=== PATIENT | male | born 1990 ===

== ENCOUNTER 2020-01-21 19:36 | Inpatient (IN) | payer SELFPAY ==
--- NOTE | 2020-01-21 20:40 | Emergency Department Report ---
Blank Doc - Documentation Documentation: 29-year-old male that presents with RLQ pain and n/v. This initial assessment/diagnostic orders/clinical plan/treatment(s) is/are subject to change based on patient's health status, clinical progression and re- assessment by fellow clinical providers in the ED. Further treatment and workup at subsequent clinical providers discretion. Patient/guardians urged not to elope from the ED as their condition may be serious if not clinically assessed and managed. Initial orders include: 1- Patient sent to [facility] for further evaluation and treatment 2- labs 3- UA
[2020-01-21 21:00] LABS: Basophils % (Auto) 0.3 % (0.0-1.8); Eosinophils # (Auto) 0.1 K/mm3 (0.0-0.4); Eosinophils % (Auto) 0.6 % (0.0-4.3); Hematocrit 46.9 % (35.5-45.6); Hemoglobin 16.3 gm/dl (11.8-15.2); Lymphocytes # (Auto) 1.4 K/mm3 (1.2-5.4); Lymphocytes % (Auto) 14.3 % (13.4-35.0); Mean Corpuscular HGB Conc 35 % (32-34); Mean Corpuscular Volume 90 fl (84-94); Monocytes # (Auto) 0.6 K/mm3 (0.0-0.8); Monocytes % (Auto) 5.9 % (0.0-7.3); Platelet Count 260 K/mm3 (140-440); Red Blood Count 5.22 M/mm3 (3.65-5.03); Red Cell Distribution Width 13.5 % (13.2-15.2)
[2020-01-21 21:23] LABS: Alanine Aminotransferase 27 units/L (7-56); Albumin 4.8 g/dL (3.9-5); BUN/Creatinine Ratio 14; Blood Urea Nitrogen 13 mg/dL (9-20); Calcium 9.8 mg/dL (8.4-10.2); Hemolysis Index 13
[2020-01-21 22:15] LABS: Bilirubin,Urine NEG (Negative); Blood,Urine NEG (Negative); Color,Urine Yellow (Yellow); Mucus,Urine FEW /HPF; Urobilinogen,Urine < 2.0 mg/dL (<2.0)
[2020-01-22] MEDS ORDERED: SODIUM CHLORIDE 0.9% 1000 ML 1,000 ML IV ONE (03:25)
[2020-01-22] MEDS ORDERED: ONDANSETRON 4 MG/2 ML INJ IV ONE (03:25)
--- NOTE | 2020-01-22 03:47 | Emergency Department Report ---
ED Abdominal Pain HPI - General Chief Complaint: Abdominal Pain Stated Complaint: ABD PAIN Time Seen by Provider: 01/21/20 20:40 Source: patient Mode of arrival: Ambulatory Limitations: No Limitations - History of Present Illness Initial Comments: this is a 29-year-old male that presents with RLQ pain and n/v x 3 days . pt denies fever or chills, pt does endorse 8/10 pain exacerbated by movement breathing and palpation. pain is relieved by nothing tried, pain is exacerbated by po intake, there are no other modifying factors. MD Complaint: abdominal pain Onset/Timin -: days(s) Radiation: RLQ Migration to: RLQ Consistency: constant Improves With: nothing Worsens With: eating Associated Symptoms: nausea, vomiting - Related Data Allergies Allergy/AdvReac Type Severity Reaction Status Date / Time No Known Allergies Allergy Unverified 01/21/20 20:43 ED Review of Systems ROS: Stated complaint: ABD PAIN Other details as noted in HPI Constitutional: denies: chills, fever Eyes: denies: eye pain, eye discharge, vision change ENT: denies: ear pain, throat pain Respiratory: denies: cough, shortness of breath, wheezing Cardiovascular: denies: chest pain, palpitations Endocrine: no symptoms reported Gastrointestinal: abdominal pain, nausea, vomiting. denies: diarrhea, constipation, melena Genitourinary: denies: urgency, dysuria, frequency, hematuria, discharge Musculoskeletal: as per HPI Skin: as per HPI Neurological: denies: headache, weakness, paresthesias Psychiatric: anxiety Hematological/Lymphatic: denies: easy bleeding, easy bruising ED Past Medical Hx - Past Medical History Previous Medical History?: No - Surgical History Past Surgical History?: No - Social History Smoking Status: Never Smoker Substance Use Type: None ED Physical Exam - General Limitations: No Limitations General appearance: alert, in no apparent distress - Head Head exam: Present: atraumatic, normocephalic - Eye Eye exam: Present: normal appearance, PERRL, EOMI Pupils: Present: normal accommodation - ENT ENT exam: Present: mucous membranes moist - Neck Neck exam: Present: normal inspection, full ROM. Absent: tenderness - Respiratory Respiratory exam: Present: normal lung sounds bilaterally. Absent: respiratory distress, wheezes, stridor - Cardiovascular Cardiovascular Exam: Present: regular rate, normal rhythm, normal heart sounds. Absent: systolic murmur, diastolic murmur, rubs, gallop - GI/Abdominal GI/Abdominal exam: Present: tenderness, guarding, normal bowel sounds. Absent: rebound, rigid, mass, bruit, pulsatile mass, hernia - Expanded GI/Abdominal Exam Expanded GI/Abdominal exam: Present: psoas sign, obturator sign, heel tap sign. Absent: Reyes's sign, Rovsing's sign, tenderness at Mcburney's Point, ascites - Rectal Rectal exam: Present: deferred - Extremities Exam Extremities exam: Present: normal inspection, full ROM, normal capillary refill. Absent: tenderness - Back Exam Back exam: Present: normal inspection, full ROM. Absent: tenderness, CVA te nderness (R), CVA tenderness (L), vertebral tenderness - Neurological Exam Neurological exam: Present: alert, oriented X3, CN II-XII intact, normal gait - Psychiatric Psychiatric exam: Present: normal affect, normal mood - Skin Skin exam: Present: warm, dry, intact, normal color. Absent: rash ED Course Vital Signs 01/21/20 19:55 Temperature 98.1 F Pulse Rate 67 Respiratory 20 Rate Blood Pressure 141/86 O2 Sat by Pulse 100 Oximetry ED Medical Decision Making - Lab Data Result diagrams: 01/21/20 20:51 01/21/20 20:51 Labs 01/21/20 01/21/20 01/21/20 20:51 20:51 Unknown WBC 9.7 RBC 5.22 H Hgb 16.3 H Hct 46.9 H MCV 90 MCH 31 MCHC 35 H RDW 13.5 Plt Count 260 Lymph % (Auto) 14.3 Lynn % (Auto) 5.9 Eos % (Auto) 0.6 Baso % (Auto) 0.3 Lymph # 1.4 Lynn # 0.6 Eos # 0.1 Baso # 0.0 Seg Neutrophils % 78.9 H Seg Neutrophils # 7.7 Sodium 139 Potassium 4.2 Chloride 97.9 L Carbon Dioxide 27 Anion Gap 18 BUN 13 Creatinine 0.9 Estimated GFR > 60 BUN/Creatinine Ratio 14 Glucose 108 H Calcium 9.8 Total Bilirubin 0.70 AST 15 ALT 27 Alkaline Phosphatase 100 Total Protein 8.8 H Albumin 4.8 Albumin/Globulin Ratio 1.2 Lipase 20 Urine Color Yellow Urine Turbidity Clear Urine pH 6.0 Ur Specific Alton 1.021 Urine Protein 30 mg/dl Urine Glucose (UA) Neg Urine Ketones Neg Urine Blood Neg Urine Nitrite Neg Urine Bilirubin Neg Urine Urobilinogen < 2.0 Ur Leukocyte Esterase Neg Urine WBC (Auto) 1.0 Urine RBC (Auto) 3.0 U Epithel Cells (Auto) < 1.0 Urine Mucus Few - Radiology Data Radiology results: report reviewed, image reviewed Findings Reporting MD: Nafisa Finley Dictation Time: January 22, 2020 03:28 Tr anscriptionist: Not available Senior Auditor Date: CT ABDOMEN AND PELVIS WITH IV CONTRAST INDICATION: Right lower quadrant abdominal pain TECHNIQUE: Following the administration of intravenous contrast, multiple axial CT images of the abdomen and pelvis were acquired. Sagittal and coronal r eformats were obtained. All CT performed at this facility utilize dose reduction techniques including automated exposure control, iterative reconstruction and weight based dosing when appropriate to reduce patient radiation dose to as low as reasonably achievable. COMPARISON: None FINDINGS: Limited imaging of the bilateral lung bases demonstrates no evidence of acute abnormality. Abdomen: The liver, gallbladder, spleen, pancreas, bilateral adrenal glands and bilateral kidneys show no evidence of acute abnormality. The abdominal aorta is normal in caliber. The appendix is thick-walled, fluid-filled and dilated to a maximum caliber of 1.2 cm with associated mild to moderate inflammatory stranding. No extraluminal air is identified. There are a few prominent right lower quadrant lymph nodes noted. Pelvis: No free fluid is seen within the pelvis. The urinary bladder appears normal. Bones and Soft Tissues: Evaluation of bony structures demonstrates no evidence of acute bony abnormality. Evaluation of soft tissue structures demonstrates no evidence of acute soft tissue abnormality. IMPRESSION: 1. Dilated fluid-filled appendix with mild to moderate associated inflammatory changes most compatible with acute appendicitis. Signer Name: Nafisa Finley MD Signed: 01/22/2020 3:28 AM Workstation Name: [id number] - Medical Decision Making ct abd pelvis consistent with acute appendicitis, consulted general surgery Dr. Pearson recommendation: Admit to hospitalist, Dx Acute Appendicitis, Plan Admit to [facility] Dx Acute appendicitis, Right Quad Abdominal Pain versus acute Appendicitis. Discussed tx plan with patient, NS IVFs, Zosyn 4.5 gm, plan surgery this am, NPO , pt verbalized agreement and understanding of discharge plan. Last po intake 1 day ago with n/v. Critical care attestation.: If time is entered above; I have spent that time in minutes in the direct care of this critically ill patient, excluding procedure time. ED Disposition Clinical Impression: Appendicitis Qualifiers: Appendicitis type: acute appendicitis Acute appendicitis type: unspecified acute appendicitis type Qualified Code(s): K35.80 - Unspecified acute appendicitis Disposition: OP ADMIT IP TO THIS HOSP Is pt being admited?: Yes Does the pt Need Aspirin: No Condition: Stable Instructions: Abdominal Pain (ED) Time of Disposition: 05:08
--- NOTE | 2020-01-22 04:33 | Cat Scan Report ---
CT ABDOMEN AND PELVIS WITH IV CONTRAST INDICATION: Right lower quadrant abdominal pain TECHNIQUE: Following the administration of intravenous contrast, multiple axial CT images of the abdo men and pelvis were acquired. Sagittal and coronal reformats were obtained. All CT performed at this facility utilize dose reduction techniques including automated exposure control, iterative reconstru ction and weight based dosing when appropriate to reduce patient radiation dose to as low as reasonab ly achievable. COMPARISON: None FINDINGS: Limited imaging of the bilateral lung bases demonstrates no evidence of acute abnormality. Abdomen: The liver, gallbladder, spleen, pancreas, bilateral adrenal glands and bilateral kidneys douglas w no evidence of acute abnormality. The abdominal aorta is normal in caliber. The appendix is thick-walled, fluid-filled and dilated to a maximum caliber of 1.2 cm with associated mild to moderate inflammatory stranding. No extraluminal air is identified. There are a few prominen t right lower quadrant lymph nodes noted. Pelvis: No free fluid is seen within the pelvis. The urinary bladder appears normal. Bones and Soft Tissues: Evaluation of bony structures demonstrates no evidence of acute bony abnormal ity. Evaluation of soft tissue structures demonstrates no evidence of acute soft tissue abnormality. IMPRESSION: 1. Dilated fluid-filled appendix with mild to moderate associated inflammatory changes most compatibl e with acute appendicitis. Signer Name: Nafisa Finley MD Signed: 01/22/2020 4:28 AM Workstation Name: [id number]
[2020-01-22] MEDS ORDERED: MORPHINE 4 MG/1 ML INJ IV ONE (04:42)
[2020-01-22] MEDS ORDERED: PIPERACIL/TAZOBACTA 4.5/NS 100 4.5 GM/100 ML VIAL IV ONE (04:42)
[2020-01-22] MEDS ORDERED: SODIUM CHLORIDE 0.9% 1000 ML 1,000 ML IV SCH (05:15)
--- NOTE | 2020-01-22 08:08 | History and Physical Report ---
History of Present Illness Date of examination: 01/22/20 Date of admission: 01/22/20 06:00 Chief complaint: Right lower quadrant abdominal pain associated with nausea vomiting 3 days History of present illness: Very pleasant 29-year-old male patient with no significant past medical history not on any medications presented to the emergency room with history of right lower quadrant abdominal pain associated with nausea vomiting for the last 3 days, patient also reports that he felt feverish however never checked his temperature, reports 2-3 vomitings no hematemesis no diarrhea or rectal bleeding, Denies urinary symptoms Initial evaluation in the ED , CT abdomen and pelvis; revealed fluid-filled appendix with mild to moderate inflammatory changes consistent with acute appendicitis. ED has already consulted surgeon Patient is n.p.o. status Past History Past Medical History: No medical history Past Surgical History: No surgical history Social history: alcohol abuse (Social). denies: smoking, prescription drug abuse Family history: no significant family history Medications and Allergies Allergies Allergy/AdvReac Type Severity Reaction Status Date / Time No Known Allergies Allergy Verified 01/22/20 05:07 Active Meds: Active Medications Sodium Chloride (Nacl 0.9% 1000 Ml) 1,000 mls @ 125 mls/hr IV DIRECT ABIOLA Review of Systems Constitutional: fever (Note low-grade fever at home), no weight loss, no weight gain, no chills Cardiovascular: no chest pain, no orthopnea Respiratory: no cough, no hemoptysis, no shortness of breath Gastrointestinal: abdominal pain, nausea, vomiting, no diarrhea, no BRBPR, no melena Genitourinary Male: no dysuria, no hematuria Musculoskeletal: no myalgias, no arthritis Integumentary: no rash, no lesions Neurological: no seizures, no syncope Psychiatric: no anxiety, no depression Endocrine: no cold intolerance, no heat intolerance, no polydipsia, no polyuria Hematologic/Lymphatic: no easy bruising, no easy bleeding Allergic/Immunologic: no urticaria, no allergic rhinitis Exam - Constitutional Vitals: Temp Pulse Resp BP Pulse Ox 99.5 F 56 L 16 119/71 100 01/22/20 06:31 01/22/20 06:31 01/22/20 06:31 01/22/20 06:31 01/22/20 06:31 General appearance: Present: no acute distress, well-nourished - EENT Eyes: Present: PERRL, EOM intact - Neck Neck: Present: supple, normal ROM - Respiratory Respiratory effort: normal Respiratory: bilateral: diminished, negative: rales, rhonchi, wheezing - Cardiovascular Rhythm: regular Heart Sounds: Present: S1 & S2 - Extremities Extremities: no ischemia, No edema - Abdominal General gastrointestinal: Present: soft, tender (Right lower quadrant, no guarding no rigidity), non-distended, normal bowel sounds - Integumentary Integumentary: Present: clear, warm - Musculoskeletal Musculoskeletal: strength equal bilaterally - Psychiatric Psychiatric: appropriate mood/affect, cooperative - Neurologic Neurologic: moves all extremities Results - Labs CBC & Chem 7: 01/21/20 20:51 01/21/20 20:51 Labs: Abnormal lab results 01/21/20 01/21/20 Range/Units 20:51 20:51 RBC 5.22 H (3.65-5.03) M/mm3 Hgb 16.3 H (11.8-15.2) gm/dl Hct 46.9 H (35.5-45.6) % MCHC 35 H (32-34) % Seg Neutrophils % 78.9 H (40.0-70.0) % Chloride 97.9 L (98-107) mmol/L Glucose 108 H (75-100) mg/dL Total Protein 8.8 H (6.3-8.2) g/dL Assessment and Plan --Acute appendicitis; Right lower quadrant pain with nausea vomiting N.p.o. status, IV Zosyn Surgery consulted --Intractable nausea vomiting; Secondary to acute appendicitis Antiemetics, IV Protonix Supportive care --DVT prophylaxis; SCDs No pharmacologic anticoagulation pending surgical procedure Closely monitor the patient and adjust management as needed Plan of care reviewed with the patient and his nurse
[2020-01-22] MEDS ORDERED: ONDANSETRON 4 MG/2 ML INJ IV PRN ×2 (08:17→12:53)
--- NOTE | 2020-01-22 09:26 | Consultation ---
History of Present Illness Consult date: 01/22/20 Reason for consult: abdominal pain Chief complaint: abdominal pain - History of present illness History of present illness: 29 yo M with no PMHx presents to ER with 2 days of worsening RLQ, sharp, nonradi ating abdominal pain. Pain started suddenly on Saturday. Patient saw his PCP who advised him to go to ER for symptoms worrisome for appendicitis. Patient states he has had n/v. No f/c. No sick contacts. He has never had pain like this before. No inciting factors. w/u in ER showed appendecitis. Surgery consulted for evaluation. Past History Past Medical History: No medical history Past Surgical History: No surgical history Social history: alcohol abuse (Social). denies: smoking, prescription drug abuse Family history: no significant family history Medications and Allergies Allergies Allergy/AdvReac Type Severity Reaction Status Date / Time No Known Allergies Allergy Verified 01/22/20 05:07 Active Meds: Active Medications Sodium Chloride (Nacl 0.9% 1000 Ml) 1,000 mls @ 125 mls/hr IV DIRECT ABIOLA Piperacillin Sod/Tazobactam Sod (Zosyn/Ns 4.5gm/100ml) 4.5 gm in 100 mls @ 200 mls/hr IV Q8HR ABIOLA; Protocol Ondansetron HCl (Zofran) 4 mg IV Q4H PRN PRN Reason: Nausea And Vomiting Pantoprazole Sodium (Protonix) 40 mg IV QDAY ABIOLA Review of Systems All systems: negative (10 PT ROS performed and negative except for that listed in HPI) Exam Vital Signs Temp Pulse Resp BP Pulse Ox 98.1 F 67 20 141/86 100 01/21/20 19:55 01/21/20 19:55 01/21/20 19:55 01/21/20 19:55 01/21/20 19:55 Narrative exam: Gen: AAOx3. NAD ENT: No scleral icterus or conjunctival pallor CV: S1, S2+ Resp: even and unlabored Abd: soft, ND, +RLQ and suprapubic TTP. no r/r/g Ext: no c/c/e Results - Labs 01/21/20 20:51 01/21/20 20:51 Abnormal lab results 01/21/20 01/21/20 Range/Units 20:51 20:51 RBC 5.22 H (3.65-5.03) M/mm3 Hgb 16.3 H (11.8-15.2) gm/dl Hct 46.9 H (35.5-45.6) % MCHC 35 H (32-34) % Seg Neutrophils % 78.9 H (40.0-70.0) % Chloride 97.9 L (98-107) mmol/L Glucose 108 H (75-100) mg/dL Total Protein 8.8 H (6.3-8.2) g/dL Diabetes panel 01/21/20 Range/Units 20:51 Sodium 139 (137-145) mmol/L Potassium 4.2 (3.6-5.0) mmol/L Chloride 97.9 L (98-107) mmol/L Carbon Dioxide 27 (22-30) mmol/L BUN 13 (9-20) mg/dL Creatinine 0.9 (0.8-1.3) mg/dL Glucose 108 H (75-100) mg/dL Calcium 9.8 (8.4-10.2) mg/dL AST 15 (5-40) units/L ALT 27 (7-56) units/L Alkaline Phosphatase 100 (35-129) units/L Total Protein 8.8 H (6.3-8.2) g/dL Albumin 4.8 (3.9-5) g/dL Calcium panel 01/21/20 Range/Units 20:51 Calcium 9.8 (8.4-10.2) mg/dL Albumin 4.8 (3.9-5) g/dL Pituitary panel 01/21/20 Range/Units 20:51 Sodium 139 (137-145) mmol/L Potassium 4.2 (3.6-5.0) mmol/L Chloride 97.9 L (98-107) mmol/L Carbon Dioxide 27 (22-30) mmol/L BUN 13 (9-20) mg/dL Creatinine 0.9 (0.8-1.3) mg/dL Glucose 108 H (75-100) mg/dL Calcium 9.8 (8.4-10.2) mg/dL Adrenal panel 01/21/20 Range/Units 20:51 Sodium 139 (137-145) mmol/L Potassium 4.2 (3.6-5.0) mmol/L Chloride 97.9 L (98-107) mmol/L Carbon Dioxide 27 (22-30) mmol/L BUN 13 (9-20) mg/dL Creatinine 0.9 (0.8-1.3) mg/dL Glucose 108 H (75-100) mg/dL Calcium 9.8 (8.4-10.2) mg/dL Total Bilirubin 0.70 (0.1-1.2) mg/dL AST 15 (5-40) units/L ALT 27 (7-56) units/L Alkaline Phosphatase 100 (35-129) units/L Total Protein 8.8 H (6.3-8.2) g/dL Albumin 4.8 (3.9-5) g/dL - Imaging CT scan - abdomen: report reviewed, image reviewed CT scan - pelvis: report reviewed, image reviewed Assessment and Plan 29 yo M with acute appendicitis Plan: 1. NPo 2. IVF 3. IV abx - zosyn 4. prn pain and nausea control 5. recommend OR for appendectomy. Indication, risks, benefits, alternatives to surgery discussed with patient and questions answered. Consent obtained. Pt added to OR schedule for today. He has updated his mother and girlfriend. Thank you, please call with questions.
[2020-01-22] MEDS ORDERED: PANTOPRAZOLE 40 MG INJ IV SCH (10:00)
[2020-01-22] MEDS ORDERED: PANTOPRAZOLE 40 MG INJ IV ONE (10:25)
[2020-01-22] MEDS ORDERED: HYDROmorphone 1 MG/1 ML INJ IV PRN (12:53)
--- NOTE | 2020-01-22 12:53 | Anesthesia Day of Surgery ---
Anesthesia Day of Surgery - Day of Surgery Patient Examined: Yes Patient H&P Reviewed: Yes Patient is NPO: Yes
--- NOTE | 2020-01-22 12:53 | Anesthesia Consultation ---
Anesthesia Consult and Med Hx Date of service: 01/22/20 - Airway Anesthetic Teeth Evaluation: Good ROM Head & Neck: Adequate Mental/Hyoid Distance: Adequate Mallampati Class: Class II Intubation Access Assessment: Probably Good - Pulmonary Exam CTA: Yes - Cardiac Exam Cardiac Exam: RRR - Pre-Operative Health Status ASA Pre-Surgery Classification: ASA1 Proposed Anesthetic Plan: General - Pulmonary Hx Smoking: No Hx Respiratory Symptoms: No - Cardiovascular System Hx Hypertension: No Hx Heart Attack/AMI: No Hx Percutaneous Transluminal Coronary Angioplasty (PTCA): No Hx Cardia Arrhythmia: No - Central Nervous System CVA: No - Gastrointestinal Hx Gastroesophageal Reflux Disease: No - Endocrine Hx Renal Disease: No Hx Liver Disease: No Hx Insulin Dependent Diabetes: No Hx Non-Insulin Dependent Diabetes: No Hx Thyroid Disease: No - Hematic Hx Anemia: No - Other Systems Hx Substance Use: No Hx Obesity: No - Additional Comments Anesthesia Medical History Comments: No prior GA. No FHx anesthetic complications. No N/V >24hrs.
[2020-01-22] MEDS ORDERED: SCOPOLAMINE TRANSDERMAL PATCH 72 HR TD NR (13:00)
[2020-01-22] MEDS ORDERED: MIDAZOLAM 2 MG/2 ML INJ IV NR (13:00)
[2020-01-22] MEDS: LACTATED RINGERS 1,000 ML IV SCH ×2 (13:09→18:05)
[2020-01-22] MEDS ORDERED: LIDOCAINE (1%) 10 MG/1 ML VIAL 20 ML MDV ONE (13:42)
[2020-01-22] MEDS ORDERED: BUPIVACAINE-EPINEPHRINE/PF 0.5%-1:200,000 (30 ML) VIAL INFILTRATI ONE (13:42)
[2020-01-22] MEDS ORDERED: fentaNYL 100 MCG/2 ML INJ ONE (13:43)
[2020-01-22] MEDS ORDERED: GLYCOPYRROLATE 0.4 MG/2 ML INJ ONE (13:43)
[2020-01-22] MEDS ORDERED: propofoL 200 MG/20 ML VIAL IV ONE (13:43)
[2020-01-22] MEDS ORDERED: LIDOCAINE MPF (2%) 20 MG/1 ML VIAL 5 ML ONE (13:43)
[2020-01-22] MEDS ORDERED: PHENYLEPHRINE/NS 1,000 MCG/10 ML SYRINGE (OR USE) IV ONE (13:43)
[2020-01-22] MEDS ORDERED: NEOSTIGMINE 10MG/10 ML INJ MDV ONE (13:43)
[2020-01-22] MEDS ORDERED: dexAMETHasone 20 MG/5 ML VIAL ONE (13:43)
[2020-01-22] MEDS ORDERED: ONDANSETRON 4 MG/2 ML INJ ONE (13:43)
[2020-01-22] MEDS ORDERED: SUCCINYLCHOLINE CHLORIDE 200 MG/10 ML INJ MDV ONE (13:43)
[2020-01-22] MEDS ORDERED: ROCURONIUM 50 MG/5 ML INJ IV ONE (13:43)
[2020-01-22] MEDS ORDERED: PIPERACIL/TAZOBACTA 4.5/NS 100 4.5 GM/100 ML VIAL IV SCH (14:00)
[2020-01-22] MEDS ORDERED: SODIUM CHLORIDE 0.9% IRR 1,500 ML BOTTLE IR ONE (14:42)
[2020-01-22] MEDS ORDERED: BUPIVACAINE/PF (0.5%) 5 MG/1 ML 30 ML VIAL INFILTRATI ONE (14:42)
[2020-01-22] MEDS ORDERED: LIDOCAINE (1%) 10 MG/1 ML VIAL 20 ML MDV INFILTRATI ONE (14:43)
[2020-01-22] MEDS ORDERED: HYDROcodone/ACETAMINOPHEN 5-325 MG TAB PO PRN (15:03)
--- NOTE | 2020-01-22 15:08 | Operative Report ---
Operative Report Operative Report: Date of operation: 01/22/2020 Preoperative diagnosis: acute appendicitis Postoperative diagnosis: Acute appendicitis Procedure performed: Laparoscopic appendectomy Surgeon: Geovanni Pearson DO Anesthesia: GETA Findings: Dilated, thickened, inflamed appendix with periappendicitis, no perforation EBL:<10cc Specimen: appendix Disposition/Condition: stable to PACU HPI and indication: 29-year-old male presented to ER with RLQ pain for 2 days, nausea and vomiting. Work-up included CT scan of the abdomen and pelvis which showed a fluid-filled and dilated appendix consistent with appendicitis. It was recommended that the patient undergo appendectomy. All risks benefits and alternatives to surgery discussed with patient questions answered. Consent obtained. Procedure in detail: Patient was identified in the preop area and taken back to the OR and placed on the OR table in supine position. After anesthesia was induced a mascorro catheter was steriley placed by the circulating nurse. A time out was performed. Local anesthetic was infilitrated into all skin incision sites. A supraumbilical incision was made using an 11 blade and veress needle inserted. The positioning of the veress needle was confirmed using the saline drop test. The abdomen was then insufflated to 15mmHg. The veress needle was withdrawn and a 5mm Optiview trocar was placed through this incision. The abdomen was inspected and no underlying injury to the abdominal structures was identified. A 5mm suprapubic trocar and a 12 mm LLQ trocar were placed under direct visualization. The patient was placed in reverse Trendelenburg and tilted to the left. The appendix was visualized and noted to be dilated, inflamed, with periappendicit is. There were some adhesions to the lateral abdominal wall which were dissected using the harmonic scalpel. The base of the appendix was identified and was not involved with the inflammation. The mesentery of the appendix was ligated using the harmonic scalpel. The base of the appendix was transected using an ethicon flex stapler 45mm white load. The appendix was placed into an endocatch bag and removed via the 12 mm port. This was passed off the table as specimen. The staple line and mesentery were then inspected. 2 clips were placed on the staple line for a small venous user. The staple line and ligated mesoappendix were inspected multiple times and no bleeding visualized. The patient was placed back into neutral position. The 12mm port fascia was closed with a single interrupted 0 vicryl stitch using the Naseem Meyer device. The remainder of the ports were removed and the abdomen desufflated. All incisions were once again infiltrated with local anesthetic. All skin incisions were closed using 4-0 monocryl subcuticular stitches and skin glue. At the end of the case, all sponge, instrument, sharp counts were correct x2. The patient was awoken from anesthesia, mascorro catheter removed, and she was taken to PACU in stable condition.
--- NOTE | 2020-01-22 15:56 | Post Anesthesia Evaluation ---
- Post Anesthesia Evaluation Patient Participated: Yes Airway Patent: Yes Stable Respiratory Function: Yes Nausea/Vomiting: No Temp > 96.8F: Yes Pain Manageable: Yes Adequeate Hydration: Yes Anesthesia Complications: No
[2020-01-23] MEDS: LACTATED RINGERS 1,000 ML IV SCH (04:55)
--- NOTE | 2020-01-23 10:13 | Discharge Summary ---
Providers - Providers Date of Admission: 01/22/20 06:00 Date of discharge: 01/23/20 Attending physician: KATHERIN GREGORY 01/22/20 05:05 Consult to Physician [CONS] Stat Comment: done Consulting Provider: CHRISTIAN JERNIGAN Physician Instructions: Reason For Exam: Abdominal Pain Primary care physician: PHYSICIAN PRACTICE COORDINATOR Hospitalization Reason for admission: Right lower quadrant pain/acute appendicitis Condition: Stable Pertinent studies: CT abdomen and pelvis; revealed fluid-filled appendix with mild to moderate infl ammatory changes consistent with acute appendicitis. Procedures: Lap cholecystectomy Hospital course: Very pleasant 29-year-old male patient with no significant past medical history not on any medications presented to the emergency room with history of right lower quadrant abdominal pain associated with nausea vomiting for the last 3 days, patient also reports that he felt feverish however never checked his temperature, reports 2-3 vomitings no hematemesis no diarrhea or rectal bleeding, Denies urinary symptoms Initial evaluation in the ED , CT abdomen and pelvis; revealed fluid-filled appendix with mild to moderate inflammatory changes consistent with acute appendicitis. Patient was admitted evaluated by surgery, subsequently underwent lap cholecystectomy. Patient symptoms resolved, tolerated regular diet This morning patient is comfortable no new complaints vital signs stable physical examination unremarkable Hemodynamically and clinically stable at discharge Advised to follow-up with surgeon in 2 weeks And primary care physician within 1 week Discharge diagnosis; --Acute appendicitis; Status post lap cholecystectomy --Intractable nausea vomiting; Resolved Stable at discharge Disposition: ND-01 TO HOME OR SELFCARE Time spent for discharge: 32 min Core Measure Documentation - Palliative Care Palliative Care/ Comfort Measures: Not Applicable - Core Measures Any of the following diagnoses?: none Exam - Constitutional Vitals: Temp Pulse Resp BP Pulse Ox 98.4 F 63 16 90/35 98 01/23/20 09:19 01/23/20 09:19 01/23/20 09:19 01/23/20 09:19 01/23/20 09:19 General appearance: Present: no acute distress, well-nourished - EENT Eyes: Present: PERRL, EOM intact - Neck Neck: Present: supple, normal ROM - Respiratory Respiratory effort: normal Respiratory: bilateral: diminished, negative: rales, rhonchi, wheezing - Cardiovascular Rhythm: regular Heart Sounds: Present: S1 & S2 - Extremities Extremities: no ischemia, No edema - Abdominal General gastrointestinal: Present: soft, non-tender, non-distended, normal bowel sounds - Integumentary Integumentary: Present: clear, warm - Musculoskeletal Musculoskeletal: strength equal bilaterally - Psychiatric Psychiatric: appropriate mood/affect, cooperative - Neurologic Neurologic: moves all extremities Plan Activity: no restrictions Diet: regular Additional Instructions: If you have worsening symptoms contact MD or go to emergency room Follow up with: CHRISTIAN JERNIGAN DO [Staff Physician] - 14 Days PRIMARY CARE,MD [Primary Care Provider] - 3-5 Days Prescriptions: HYDROcodone/APAP 5-325 [[place] 5-325 mg TAB] 1 each PO Q6H PRN #15 tablet PRN Reason: Pain, Moderate (4-6)
--- NOTE | 2020-01-23 11:01 | Progress Note ---
Assessment and Plan - Patient Problems (1) Appendicitis Current Visit: Yes Status: Acute Qualifiers: Appendicitis type: acute appendicitis Acute appendicitis type: unspecified acute appendicitis type Qualified Code(s): K35.80 - Unspecified acute appendicitis Plan to address problem: PT stable. s/p lap appy - POD#1. Appears to be doing well. There are no concerns or complications. He is cleared for discharge from a surgical perspective. Recommendations: 1. Diet as tolerated 2. Encourage ambulation 3. May shower tomorrow. Pat dry wounds. 4. Call on Saturday to make follow-up appointment in 1 to 2 weeks 5. No heavy lifting or strenuous activity Please call with any questions Subjective Date of service: 01/23/20 Patient Reports: Positive: no new complaints, feels better, tolerating a regular diet. Negative: nausea, vomiting Objective Vital Signs - 12hr 01/22/20 01/23/20 01/23/20 23:22 04:07 09:19 Temperature 99.2 F 98.5 F 98.4 F Pulse Rate 64 69 63 Respiratory 16 16 16 Rate Blood Pressure 106/43 101/35 90/35 O2 Sat by Pulse 96 95 98 Oximetry - General physical appearance no distress, no pain, other (looks well) - Eyes normal occular movement - Respiratory normal expansion, normal respiratory effort - Abdomen soft, not distended, surgical scars (C/D/I) - Psychiatric oriented to time, oriented to person, oriented to place, speech is normal, memory intact - Labs 01/21/20 20:51 01/21/20 20:51
[2020-01-23 12:29] VITALS: BP 101/43
== END 2020-01-23 13:59 | disposition home or self-care (01) | DRG 343 ==
LOC: ED 19:36 → 4A 01-22 06:00
PROVIDERS: ADMIT Internal Medicine Geriatric Medicine; ATTEND Internal Medicine
PROC: 0DTJ4ZZ Resection of Appendix, Percutaneous Endoscopic Approach (ICD-10-PCS; principal; 2020-01-22)
DX: K35.80 Unspecified acute appendicitis (principal); Z72.89 Other problems related to lifestyle
CPT/HCPCS: 36415; 74177; 80053; 81001; 83690; 85025; 88304; G0378; C9113; J0330; J1100; J2250; J2270; J2370; J2405; J2543; J2704; J2710; J3010; J7030; J7120; Q9967